=== PATIENT | male | born 1990 | race Caucasian/White ===

== ENCOUNTER 2021-07-17 16:35 | Emergency (ER) | payer BC, OTHER ==
--- NOTE | 2021-07-17 17:09 | EDM.PDOC ---
ED HPI GENERAL MEDICAL PROBLEM - General Chief Complaint: Upper Extremity Injury/Pain Stated Complaint: broken finger Time Seen by Provider: 07/17/21 17:05 Source of Information: Reports: Patient History Limitations: Reports: Intoxication - History of Present Illness INITIAL COMMENTS - FREE TEXT/NARRATIVE: Patient comes to the emergency department today from home with concerns of an injury to his right hand. This patient approximately 5 days ago fell landing on his right hand. He injured his right third finger at that time. He was not seen at that time. It immediately was swollen and painful and bruised. Now that the swelling is gone down he is now able to move his finger today and he feels a clicking sensation in his third finger. He is now concerned that his finger could be broken so he came to the ED today. He denies any paresthesias to the hand. He denies any other injury and/or pain other than to the third finger of his right hand. He denies any wrist pain. He denies any paresthesias. He initially thought he just had a bruise but he is concerned now that it is broken because he can move it and he feels a clicking sound. 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 Neither intervention was used today - Related Data Allergies Allergy/AdvReac Type Severity Reaction Status Date / Time cephalexin Allergy Hives Verified 07/17/21 16:37 Home Meds: Home Meds busPIRone [Buspar] 15 mg PO TID 07/17/21 [History] Social & Family History - Tobacco Use Tobacco Use Status *Q: Current Every Day Tobacco User Years of Tobacco use: 8 Packs/Tins Daily: 1 Used Tobacco, but Quit: No Month/Year Tobacco Last Used: t Second Hand Smoke Exposure: No - Caffeine Use Caffeine Use: Reports: None - Alcohol Use Date of Last Drink: 10/12/20 - Recreational Drug Use Recreational Drug Use: No Review of Systems - Review of Systems Review Of Systems: Comprehensive ROS is negative, except as noted in HPI. ED EXAM, GENERAL - Physical Exam Exam: See Below Exam Limited By: No Limitations General Appearance: Alert, WD/WN, No Apparent Distress Respiratory/Chest: No Respiratory Distress Cardiovascular: Normal Peripheral Pulses, Regular Rate, Rhythm Peripheral Pulses: 2+: Radial (L), Radial (R) Extremities: No: Normal Inspection (There is bruising on the dorsum of the right hand on the second third fourth MCP joints. There is tenderness at the third MCP joint. There is swelling of the third finger. He is able to flex and extend appropriately at all the joints of the hand. CMS intact appropriately. No break in the skin) Neurological: Alert, Oriented, No Motor/Sensory Deficits Skin Exam: Warm, Dry, Intact, Normal Color ED TRAUMA EXTREMITY PROCEDURES - Splinting Right 3rd Digit Splint Site: r 3rd finger Pre-Procedure NV Status: Normal Post-Procedure NV Status: Normal Splint Material: Aluminum-Foam Splint Design: Volar Applied & Form Fitted By: Provider Provider Post-Splint Application NV Check: NV Status Normal Complications: Yes (Unable to reduce still displaced.) Course - Vital Signs Last Recorded V/S: Last Vital Signs Temp 97.1 F 07/17/21 16:48 Pulse 83 07/17/21 16:48 Resp 16 07/17/21 16:48 BP 125/72 07/17/21 16:48 Pulse Ox 96 07/17/21 16:48 - Orders/Labs/Meds Orders: Active Orders 24 hr Category Date Time Status Fingers Third Digit Rt F7 [CR] Stat Exams 07/17/21 17:29 Ordered Hand Comp Min 3V Rt [CR] Stat Exams 07/17/21 16:52 Ordered Meds: Medications Discontinued Medications Generic Name Dose Route Start Last Admin Trade Name Freq PRN Reason Stop Dose Admin Bupivacaine HCl 10 ml 07/17/21 17:15 07/17/21 17:21 Bupivacaine 0.5% 10 Ml Sdv INJECT 07/17/21 17:16 10 ml ONETIME ONE Administration Lidocaine 5 ml 07/17/21 17:15 07/17/21 17:21 Lidocaine 2% 5 Ml Sdv INJECT 07/17/21 17:16 5 ml ONETIME ONE Administration - Radiology Interpretation Free Text/Narrative:: X-ray of the right hand initially reviewed extemporaneously by myself. At the third finger proximal phalanx at the base there is a transverse fracture with some lateral displacement. This is clearly a fracture that has been there quite some time as I see some calcification along the fracture line I have concern for the ability to reduce this. No other overt bony deformities. Dislocations. Radiological review to follow. Post reduction attempt was unsuccessful this is not surprising due to the concern for the already calcified fracture line. Radiological review to follow. - Re-Assessments/Exams Free Text/Narrative Re-Assessment/Exam: X-ray clearly shows a displaced fracture of the proximal phalanx. I discussed with the patient that this is his dominant hand we should try to reduce this although with the calcification along the fracture line I have concern for the inability to do so as this fracture is almost a week old. Risk and benefits of a digital block were explained to the patient as well as reduction verbal consent was obtained. 1% lidocaine without epinephrine and 0.5% bupivacaine without epinephrine was mixed in a 50-50 fashion. The base of the third finger of the right hand was cleansed with Betadine and allowed to dry the appropriate time period. Then with the above mixture I instilled 2.5 mils medial and laterally at the base of the third finger. Patient tolerated the procedure well. I then attempted reduction of this almost week old fracture with manual traction distraction and manipulation of the finger. There is some lateral aspect of displacement visually prior to the attempted reduction. Multiple attempts were made to try to reduce this week old fracture that was unsuccessful. CMS maintained and unchanged. The patient was placed in a volar finger splint in the position of neutral with good CMS. I explained to the patient that I was unable to reduce this fracture. This is his dominant hand and it is displaced somewhat and for best outcomes we should have him follow-up with hand surgery and most likely needs some ORIF and pinning of this finger as it is still somewhat displaced. He is understanding of this. Discharge directions as below are explained the patient is comfortable with this plan and his questions are answered. Departure - Departure Time of Disposition: 17:53 Disposition: Home, Self-Care 01 Clinical Impression: Closed fracture of proximal phalanx of digit of right hand Qualifiers: Encounter type: initial encounter Qualified Code(s): S62.619A - Displaced fracture of proximal phalanx of unspecified finger, initial encounter for closed fracture - Discharge Information Instructions: Cast or Splint Care, Adult, [id number], Finger Fracture, Adult, [id number], Pain Medicine Instructions, [id number], RICE Therapy for Routine Care of Injuries, [id number] Referrals: Rhonda Yu PA-C [Primary Care Provider] - Forms: ED Department Discharge Additional Instructions: Tylenol as needed for pain. Keep the splint on at all times. Do not get it wet. Ice to the area to help with pain and swelling. Keep about the level of your heart. RICE therapy as per discharge instructions. Contact [facility] monday at [phone] for follow up for closed fracture displaced with delayed healing of the right 3rd finger. Return to the ED if new or worsening symptoms. Sepsis Event Note (ED) - Evaluation Sepsis Screening Result: No Definite Risk - Focused Exam Vital Signs: Vital Signs Temp Pulse Resp BP Pulse Ox 07/17/21 16:48 97.1 F 83 16 125/72 96 - My Orders Last 24 Hours: My Active Orders 07/17/21 16:52 Hand Comp Min 3V Rt [CR] Stat 07/17/21 17:29 Fingers Third Digit Rt F7 [CR] Stat - Assessment/Plan Last 24 Hours: My Active Orders 07/17/21 16:52 Hand Comp Min 3V Rt [CR] Stat 07/17/21 17:29 Fingers Third Digit Rt F7 [CR] Stat
[2021-07-17] MEDS ORDERED: Lidocaine 2% 5 ML SDV INJECT ONE (17:15)
[2021-07-17] MEDS ORDERED: Bupivacaine 0.5% 10 ML SDV INJECT ONE (17:15)
== END 2021-07-17 18:10 | disposition home or self-care (01) ==
LOC: LL.ED 16:35
DX: S62.612A Displaced fracture of proximal phalanx of right middle finger, initial encounter for closed fracture (principal); Z88.1 Allergy status to other antibiotic agents; Z72.0 Tobacco use; W18.39XA Other fall on same level, initial encounter
CPT/HCPCS: 73130-RT; 73140-F7; 99283; 99283-25; J3490

== ENCOUNTER 2022-06-30 04:45 | Emergency (ER) | payer MEDICAID ==
[2022-06-30] MEDS: Ibuprofen 600 MG Tab PO ONE (06:08)
== END 2022-06-30 06:15 | disposition home or self-care (01) ==
LOC: LL.ED 04:45
DX: S60.052A Contusion of left little finger without damage to nail, initial encounter (principal); S60.051A Contusion of right little finger without damage to nail, initial encounter; S90.31XA Contusion of right foot, initial encounter; Y93.61 Activity, american tackle football
CPT/HCPCS: 73130-50; 73630-RT; 99283; 99284; A9270-GY

== ENCOUNTER 2022-10-06 22:48 | Emergency (ER) | payer MEDICAID ==
[2022-10-06] MEDS ORDERED: Acetaminophen/HYDROcodone 325-5 MG Tab PO ONE (23:31)
== END 2022-10-06 23:40 | disposition home or self-care (01) ==
LOC: LL.ED 22:48
DX: S62.302A Unspecified fracture of third metacarpal bone, right hand, initial encounter for closed fracture (principal); Z88.1 Allergy status to other antibiotic agents; W22.8XXA Striking against or struck by other objects, initial encounter
CPT/HCPCS: 73130-RT; 99283